=== PATIENT | male | born 1970 | race African-American/Black ===

== ENCOUNTER 2018-09-07 09:09 | Inpatient (IN) | payer OTHER ==
[2018-09-07 11:03] VITALS: BMI 29.9
--- NOTE | 2018-09-07 12:06 | HP ---
COWS - Scale Resting Pulse: 0= [place] 80 or Below Sweatin= Chills/Flushing Restless Observation: 1= Difficult to Sit Still Pupil Size: 1= Pupils >than Normal Bone or Joint Aches: 2= Severe Diffuse Aches Runny Nose/ Eye Tearin= Runny Nose/Eyes GI Upset > 30mins: 2= Nausea/Diarrhea Tremor Observation: 2= Slight Tremor Visible Yawning Observation: 2= >3x During Session Anxiety or Irritability: 2=Irritable/Anxious Goose Flesh Skin: 0=Smooth Skin COWS Score: 15 CIWA Score Nausea/Vomitin Muscle Tremors: 2 Anxiety: 3 Agitation: 3 Paroxysmal Sweats: 1-Minimal Palms Moist Orientation: 0-Oriented Tacttile Disturbances: 1-Very Mild Itch/Numbness Auditory Disturbances: 1-Very Mild Visual Disturbances: 0-None Headache: 2-Mild CIWA-Ar Total Score: 15 - Admission Criteria [facility] Guidelines: Admission for Medically Managed Detox: Requires at least one of the followin. CIWA greater than 12 2. Seizures within the past 24 hours 3. Delirium tremens within the past 24 hours 4. Hallucinations within the past 24 hours 5. Acute intervention needed for co occurring medical disorder 6. Acute intervention needed for co occurring psychiatric disorder 7. Severe withdrawal that cannot be handled at a lower level of care (continued vomiting, continued diarrhea, abnormal vital signs) requiring intravenous medication and/or fluids 8. Admission ROS S - [facility] Chief Complaint: i need help to stop using heroin and alcohol and xanax Allergies/Adverse Reactions: Allergies Allergy/AdvReac Type Severity Reaction Status Date / Time No Known Allergies Allergy Verified 09/07/18 10:50 History of Present Illness: this 48 years old male with withdrawal symptom,heroin and alcohol dependence, seeking detox, last detox in [facility] in 06/07 nicotine dependence 1/2 pack/day,would like nicotine gum longest period of sobriety 7 years schizophrenia on meds plan for rehab after detox history of asthma also using xanax Exam Limitations: No Limitations - Ebola screening Have you traveled outside of the country in the last 21 days: No Have you had contact with anyone from an Ebola affected area: No Do you have a fever: No - Review of Systems Constitutional: Chills, Loss of Appetite, Malaise, Night Sweats, Changes in sleep, Weakness EENT: reports: Tearing, Nose Congestion Respiratory: reports: No Symptoms reported Cardiac: reports: No Symptoms Reported GI: reports: Diarrhea, Nausea, Poor Appetite, Abdominal cramping : reports: No Symptoms Reported Musculoskeletal: reports: Back Pain, Joint Pain, Muscle Pain, Joint Stiffness Integumentary: reports: Dryness Neuro: reports: Headache, Tremors Endocrine: reports: No Symptoms Reported Hematology: reports: No Symptoms Reported Psychiatric: reports: No Sypmtoms Reported, Judgement Intact, Mood/Affect Appropiate, Orientated x3, Depressed (schizophrenia), other Patient History - Patient Medical History Hx Anemia: No Hx Asthma: Yes (on albuterol inhllaer) Hx Chronic Obstructive Pulmonary Disease (COPD): No Hx Cancer: No Hx Cardiac Disorders: No Hx Congestive Heart Failure: No Hx Hypertension: No Hx Hypercholesterolemia: No Hx Pacemaker: No HX Cerebrovascular Accident: No Hx Seizures: No Hx Dementia: No Hx Diabetes: No Hx Gastrointestinal Disorders: No Hx Liver Disease: No Hx Genitourinary Disorders: No Hx Sexually Transmitted Disorders: No Hx Renal Disease (ESRD): No Hx Thyroid Disease: No Hx Human Immunodeficiency Virus (HIV): No (last 07/08 negative) Hx Hepatitis C: No Hx Depression: Yes Hx Suicide Attempt: No Hx Bipolar Disorder: No Hx Schizophrenia: Yes (on med) Other Medical History: no suicidal,no homicidal - Patient Surgical History Past Surgical History: No - PPD History Previous Implant?: Yes Documented Results: Negative w/o proof Implanted On Prior [facility] Admission?: No PPD to be Administered?: Yes - Smoking Cessation Smoking history: Current every day smoker Have you smoked in the past 12 months: Yes Aproximately how many cigarettes per day: 10 Cigars Per Day: 0 Hx Chewing Tobacco Use: No Initiated information on smoking cessation: Yes 'Breaking Loose' booklet given: 09/07/18 - Substance & Tx. History Hx Alcohol Use: Yes Hx Substance Use Treatment: Yes ([facility] 06/07 completed) - Substances abused Heroin Substance route: Inhalation Frequency: Daily Amount used: a bundle a day Age of first use: 28 Date of last use: 09/06/18 Alcohol Substance route: Oral Frequency: Daily Amount used: 1 pint of brenda/2 of 24 ozs of beer Age of first use: 28 Date of last use: 09/07/18 Alprazolam (Xanax) Substance route: Oral Frequency: Daily Amount used: 4 mgs Age of first use: 46 Date of last use: 09/05/18 Family Disease History - Family Disease History Family Disease History: Other: Mother (alcohol, cirrhosis) Admission Physical Exam [facility] - Vital Signs Vital Signs: Vital Signs - 24 hr 09/07/18 10:56 Temperature 97 F L Pulse Rate 56 L Respiratory 18 Rate Blood Pressure 150/99 - Physical General Appearance: Yes: Moderate Distress, Tremorous, Irritable, Sweating, Anxious HEENTM: Yes: Normal ENT Inspection, BOBY, Pharynx Normal Respiratory: Yes: Within Normal Limits, Lungs Clear, Normal Breath Sounds, No Respiratory Distress, Other (history of asthma) Neck: Yes: Within Normal Limits, Supple, Trachea in good position Breast: Yes: Within Normal Limits Cardiology: Yes: Bradycardia Abdominal: Yes: Within Normal Limits, Normal Bowel Sounds, Soft Genitourinary: Yes: Within Normal Limits Back: Yes: Muscle Spasm Musculoskeletal: Yes: Back pain, Muscle Pain Neurological: Yes: Within Normal Limits, groover runner II-XII NML intact, Alert, Motor Strength 5/5, Normal Mood/Affect Integumentary: Yes: Dry Lymphatic: Yes: Within Normal Limits - Diagnostic (1) Opioid dependence with withdrawal Current Visit: Yes Status: Acute (2) Alcohol dependence with uncomplicated withdrawal Current Visit: Yes Status: Acute (3) Uncomplicated sedative, hypnotic or anxiolytic withdrawal Current Visit: Yes Status: Acute (4) Weight loss Current Visit: Yes Status: Acute (5) Nicotine dependence Current Visit: Yes Status: Acute (6) Depression Current Visit: Yes Status: Acute (7) Bipolar disorder Current Visit: Yes Status: Acute (8) Schizophrenia Current Visit: Yes Status: Acute (9) Asthma Current Visit: Yes Status: Acute Cleared for Admission [facility] - Detox or Rehab [facility] Level of Care: Medically Managed Detox Regimen/Protocol: Methadone/Valium Breathalyzer - Breathalyzer Breathalyzer: 0 Urine Drug Screen - Test Device Lot number: [id number] Expiration date: 05/19/20 - Control Is test valid?: Yes - Results Drug screen NEGATIVE: No Urine drug screen results: FEN-Fentanyl, MOP-Opiates, BAR-Barbiturates, BZO- Benzodiazepines Inpatient Rehab Admission - Rehab Decision to Admit Inpatient rehab admission?: No
[2018-09-07] MEDS ORDERED: cloNIDine HCL 0.1 MG TABLET PO PRN (12:26)
[2018-09-07] MEDS ORDERED: METHADONE HCL 10 MG TABLET (FOR DETOX USE ONLY) PO ONE ×2 (12:28→23:00)
[2018-09-07] MEDS ORDERED: diazePAM 5 MG TABLET PO PRN (12:32)
[2018-09-07] MEDS ORDERED: MELATONIN 5 MG TABLETS PO PRN (12:33)
[2018-09-07] MEDS ORDERED: BISMUTH SUBSALICYLATE 524 MG/30 ML UD PO PRN (12:33)
[2018-09-07] MEDS ORDERED: MAG HYDROX/AL HYDROX/SIMETH 30 ML UNIT-DOSE CUP PO PRN (12:33)
[2018-09-07] MEDS ORDERED: MENTHOL/PHENOL 1 EACH UD MM PRN (12:33)
[2018-09-07] MEDS ORDERED: IBUPROFEN 400 MG TABLET (FP) PO PRN (12:33)
[2018-09-07] MEDS ORDERED: ACETAMINOPHEN 325 MG TABLET (FP) PO PRN ×2 (12:33)
[2018-09-07] MEDS ORDERED: hydrOXYzine PAMOATE 25 MG CAPSULE (FP) PO PRN (12:33)
[2018-09-07] MEDS ORDERED: MAGNESIUM HYDROX 2400MG/30ML ORAL SUSPENSION 30 ML CUP PO PRN (12:33)
[2018-09-07] MEDS ORDERED: METHOCARBAMOL 500 MG TABLET PO PRN (12:33)
[2018-09-07] MEDS ORDERED: MAGNESIUM CITRATE 300 ML BOTTLE PO PRN (12:33)
[2018-09-07] MEDS ORDERED: ALBUTEROL SO4 8 GM HFA INHALER IH PRN (12:37)
[2018-09-07] MEDS: diazePAM 5 MG TABLET PO SCH ×2 (13:33→22:18)
--- NOTE | 2018-09-07 15:42 | EKG ---
Test Reason : Blood Pressure : / mmHG Vent. Rate : 050 BPM Atrial Rate : 050 BPM P-R Int : 178 ms QRS Dur : 092 ms QT Int : 468 ms P-R-T Axes : 062 008 011 degrees QTc Int : 426 ms SINUS BRADYCARDIA OTHERWISE NORMAL ECG NO PREVIOUS ECGS AVAILABLE Confirmed by REESE RAMIREZ, SABIHA ([id number]) on 09/07/2018 3:42:27 PM Referred By: Confirmed By:SABIHA LEIGH MD
[2018-09-07 18:39] LABS: ALBUMIN 4.4 g/dl (3.4-5.0); BILIRUBIN,TOTAL 0.5 mg/dL (0.2-1); BLOOD UREA NITROGEN 9.8 mg/dL (7-18); CALCIUM 9.1 mg/dL (8.5-10.1); POTASSIUM 4.8 mmol/L (3.5-5.1); TOT PROT 8.3 g/dl (6.4-8.2)
[2018-09-07 18:41] LABS: URINE APPEARANCE CLEAR; URINE BILIRUBIN NEGATIVE (NEGATIVE); URINE COLOR YELLOW; URINE GLUCOSE (UA) NEGATIVE (NEGATIVE); URINE KETONE NEGATIVE (NEGATIVE); URINE LEUK ESTERASE NEGATIVE (NEGATIVE); URINE NITRITE NEGATIVE (NEGATIVE); URINE PROTEIN NEGATIVE (NEGATIVE)
[2018-09-07 19:26] LABS: HEMATOCRIT 43.6 % (35.4-49); HEMOGLOBIN 14.5 GM/dL (11.7-16.9); MCH 31.8 pg (25.7-33.7); MCHC 33.2 g/dl (32.0-35.9); MEAN CELL VOLUME 95.8 fl (80-96); MEAN PLT VOLUME 8.6 fl (7.5-11.1); PLATELET COUNT 234 K/MM3 (134-434); RBC 4.55 M/mm3 (4.00-5.60); RDW 13.9 % (11.9-15.9); WHITE BLOOD COUNT 8.7 K/mm3 (4.0-10.0)
[2018-09-07] MEDS: THIAMINE HCL 100 MG TABLET (FP) PO SCH (22:18)
[2018-09-07] MEDS: NICOTINE POLACRILEX 2 MG GUM BUC PRN (22:19)
[2018-09-08] MEDS: diazePAM 5 MG TABLET PO SCH (07:28)
--- NOTE | 2018-09-08 09:35 | PN ---
S CIWA - CIWA Score Nausea/Vomitin Muscle Tremors: 2 Anxiety: 2 Agitation: 2 Paroxysmal Sweats: 1-Minimal Palms Moist Orientation: 0-Oriented Tacttile Disturbances: 1-Very Mild Itch/Numbness Auditory Disturbances: 1-Very Mild Visual Disturbances: 0-None Headache: 2-Mild CIWA-Ar Total Score: 13 [facility] COWS - Scale Resting Pulse: 0= [place] 80 or Below Sweatin= Chills/Flushing Restless Observation: 1= Difficult to Sit Still Pupil Size: 1= Pupils >than Normal Bone or Joint Aches: 2= Severe Diffuse Aches Runny Nose/ Eye Tearin= Runny Nose/Eyes GI Upset > 30mins: 2= Nausea/Diarrhea Tremor Observation of Outstretched Hands: 1= Tremor [place], Not Seen Yawning Observation: 1= 1-2x During Session Anxiety or Irritability: 2=Irritable/Anxious Goose Flesh Skin: 0=Smooth Skin COWS Score: 13 S Progress Note (SOAP) Subjective: alert,irritable,anxious,interrupted sleep,tremor,pain in the body and back Objective: 09/08/18 09:33 Vital Signs Temperature 98.1 F 09/08/18 09:08 Pulse Rate 58 L 09/08/18 09:08 Respiratory Rate 18 09/08/18 09:08 Blood Pressure 113/69 09/08/18 09:08 O2 Sat by Pulse Oximetry (%) 09/08/18 09:33 Laboratory Last Values WBC 8.7 K/mm3 (4.0-10.0) 09/07/18 13:00 RBC 4.55 M/mm3 (4.00-5.60) 09/07/18 13:00 Hgb 14.5 GM/dL (11.7-16.9) 09/07/18 13:00 Hct 43.6 % (35.4-49) 09/07/18 13:00 MCV 95.8 fl (80-96) 09/07/18 13:00 MCH 31.8 pg (25.7-33.7) 09/07/18 13:00 MCHC 33.2 g/dl (32.0-35.9) 09/07/18 13:00 RDW 13.9 % (11.9-15.9) 09/07/18 13:00 Plt Count 234 K/MM3 (134-434) 09/07/18 13:00 MPV 8.6 fl (7.5-11.1) 09/07/18 13:00 Sodium 136 mmol/L (136-145) 09/07/18 13:00 Potassium 4.8 mmol/L (3.5-5.1) 09/07/18 13:00 Chloride 100 mmol/L (98-107) 09/07/18 13:00 Carbon Dioxide 29 mmol/L (21-32) 09/07/18 13:00 Anion Gap 7 MMOL/L (8-16) L 09/07/18 13:00 BUN 9.8 mg/dL (7-18) 09/07/18 13:00 Creatinine 1.0 mg/dL (0.55-1.3) 09/07/18 13:00 Est GFR (CKD-EPI)AfAm 101.26 09/07/18 13:00 Est GFR (CKD-EPI)NonAf 87.37 09/07/18 13:00 Random Glucose 89 mg/dL (74-106) 09/07/18 13:00 Calcium 9.1 mg/dL (8.5-10.1) 09/07/18 13:00 Total Bilirubin 0.5 mg/dL (0.2-1) 09/07/18 13:00 AST 36 U/L (15-37) 09/07/18 13:00 ALT 31 U/L (13-61) 09/07/18 13:00 Alkaline Phosphatase 89 U/L (45-117) 09/07/18 13:00 Total Protein 8.3 g/dl (6.4-8.2) H 09/07/18 13:00 Albumin 4.4 g/dl (3.4-5.0) 09/07/18 13:00 Urine Color Yellow 09/07/18 15:45 Urine Appearance Clear 09/07/18 15:45 Urine pH 7.0 (5.0-8.0) 09/07/18 15:45 Ur Specific [place] 1.030 (1.010-1.035) 09/07/18 15:45 Urine Protein Negative (NEGATIVE) 09/07/18 15:45 Urine Glucose (UA) Negative (NEGATIVE) 09/07/18 15:45 Urine Ketones Negative (NEGATIVE) 09/07/18 15:45 Urine Blood Negative (NEGATIVE) 09/07/18 15:45 Urine Nitrite Negative (NEGATIVE) 09/07/18 15:45 Urine Bilirubin Negative (NEGATIVE) 09/07/18 15:45 Urine Urobilinogen 1.0 mg/dL (0.2-1.0) 09/07/18 15:45 Ur Leukocyte Esterase Negative (NEGATIVE) 09/07/18 15:45 RPR Titer Nonreactive (NONREACTIVE) 09/07/18 13:00 Assessment: 09/08/18 09:34 withdrawal symptom Plan: continue detox
[2018-09-08] MEDS ORDERED: METHADONE HCL 10 MG TABLET (FOR DETOX USE ONLY) PO ONE (10:00)
[2018-09-08] MEDS: PRENATAL VITAMINS W/ FOLIC ACID TABLET (FP) PO SCH (10:28)
[2018-09-08] MEDS: NICOTINE POLACRILEX 2 MG GUM BUC PRN (10:32)
--- NOTE | 2018-09-08 11:45 | PN ---
[facility] Progress Note Note: Patient does not want to be sees saying:"I'm allright"
[2018-09-08] MEDS ORDERED: diazePAM 5 MG TABLET PO SCH (14:00)
[2018-09-08 17:14] VITALS: TEMP 98.1
[2018-09-08] MEDS: THIAMINE HCL 100 MG TABLET (FP) PO SCH (22:55)
[2018-09-09] MEDS ORDERED: diazePAM 5 MG TABLET PO ONE (06:00)
--- NOTE | 2018-09-09 09:40 | PN ---
S CIWA - CIWA Score Nausea/Vomitin Muscle Tremors: 2 Anxiety: 2 Agitation: 2 Paroxysmal Sweats: No Perspiration Orientation: 0-Oriented Tacttile Disturbances: 1-Very Mild Itch/Numbness Auditory Disturbances: 0-None Visual Disturbances: 0-None Headache: 2-Mild CIWA-Ar Total Score: 11 [facility] COWS - Scale Resting Pulse: 0= [place] 80 or Below Sweatin= Chills/Flushing Restless Observation: 1= Difficult to Sit Still Pupil Size: 1= Pupils >than Normal Bone or Joint Aches: 1= Mild Discomfort Runny Nose/ Eye Tearin= Nasal Congestion GI Upset > 30mins: 1= Stomach Cramp Tremor Observation of Outstretched Hands: 2= Slight Tremor Visible Yawning Observation: 1= 1-2x During Session Anxiety or Irritability: 2=Irritable/Anxious Goose Flesh Skin: 0=Smooth Skin COWS Score: 11 S Progress Note (SOAP) Subjective: alert,irritable,anxious,interrupted sleep,tremor,pain in the body and back Objective: 09/09/18 09:39 Vital Signs Temperature 98.1 F 09/09/18 06:00 Pulse Rate 61 09/09/18 06:00 Respiratory Rate 20 09/09/18 06:00 Blood Pressure 92/58 L 09/09/18 06:00 O2 Sat by Pulse Oximetry (%) 09/09/18 09:39 Laboratory Last Values WBC 8.7 K/mm3 (4.0-10.0) 09/07/18 13:00 RBC 4.55 M/mm3 (4.00-5.60) 09/07/18 13:00 Hgb 14.5 GM/dL (11.7-16.9) 09/07/18 13:00 Hct 43.6 % (35.4-49) 09/07/18 13:00 MCV 95.8 fl (80-96) 09/07/18 13:00 MCH 31.8 pg (25.7-33.7) 09/07/18 13:00 MCHC 33.2 g/dl (32.0-35.9) 09/07/18 13:00 RDW 13.9 % (11.9-15.9) 09/07/18 13:00 Plt Count 234 K/MM3 (134-434) 09/07/18 13:00 MPV 8.6 fl (7.5-11.1) 09/07/18 13:00 Sodium 136 mmol/L (136-145) 09/07/18 13:00 Potassium 4.8 mmol/L (3.5-5.1) 09/07/18 13:00 Chloride 100 mmol/L (98-107) 09/07/18 13:00 Carbon Dioxide 29 mmol/L (21-32) 09/07/18 13:00 Anion Gap 7 MMOL/L (8-16) L 09/07/18 13:00 BUN 9.8 mg/dL (7-18) 09/07/18 13:00 Creatinine 1.0 mg/dL (0.55-1.3) 09/07/18 13:00 Est GFR (CKD-EPI)AfAm 101.26 09/07/18 13:00 Est GFR (CKD-EPI)NonAf 87.37 09/07/18 13:00 Random Glucose 89 mg/dL (74-106) 09/07/18 13:00 Calcium 9.1 mg/dL (8.5-10.1) 09/07/18 13:00 Total Bilirubin 0.5 mg/dL (0.2-1) 09/07/18 13:00 AST 36 U/L (15-37) 09/07/18 13:00 ALT 31 U/L (13-61) 09/07/18 13:00 Alkaline Phosphatase 89 U/L (45-117) 09/07/18 13:00 Total Protein 8.3 g/dl (6.4-8.2) H 09/07/18 13:00 Albumin 4.4 g/dl (3.4-5.0) 09/07/18 13:00 Urine Color Yellow 09/07/18 15:45 Urine Appearance Clear 09/07/18 15:45 Urine pH 7.0 (5.0-8.0) 09/07/18 15:45 Ur Specific [place] 1.030 (1.010-1.035) 09/07/18 15:45 Urine Protein Negative (NEGATIVE) 09/07/18 15:45 Urine Glucose (UA) Negative (NEGATIVE) 09/07/18 15:45 Urine Ketones Negative (NEGATIVE) 09/07/18 15:45 Urine Blood Negative (NEGATIVE) 09/07/18 15:45 Urine Nitrite Negative (NEGATIVE) 09/07/18 15:45 Urine Bilirubin Negative (NEGATIVE) 09/07/18 15:45 Urine Urobilinogen 1.0 mg/dL (0.2-1.0) 09/07/18 15:45 Ur Leukocyte Esterase Negative (NEGATIVE) 09/07/18 15:45 RPR Titer Nonreactive (NONREACTIVE) 09/07/18 13:00 Assessment: 09/09/18 09:40 withdrawal symptom Plan: continue detox
[2018-09-09] MEDS ORDERED: METHADONE HCL 10 MG TABLET (FOR DETOX USE ONLY) PO ONE (10:00)
[2018-09-09] MEDS: PRENATAL VITAMINS W/ FOLIC ACID TABLET (FP) PO SCH (10:13)
[2018-09-09] MEDS: NICOTINE POLACRILEX 2 MG GUM BUC PRN (10:16)
[2018-09-09 13:49] VITALS: BP 106/68; PULSE 56
--- NOTE | 2018-09-09 14:03 | PN ---
[facility] Progress Note Note: patient did not want to continue treatment,due to personal reasons,all attempts to convince patient to stay with no avail, seen by counselor,high risks of relapsing explained,patient understood,signed release ama, advice to call 9any [email or web address] or go to nearest er if any problem or not feeling well
--- NOTE | 2018-09-09 14:06 | DS ---
[facility] Detox Discharge Summary Admission Date: 09/07/18 Discharge Date: 09/09/18 - History Present History: Alcohol Dependence, Opioid Dependence, Sedative Dependence Additional Comments: patient signed AMA Pertinent Past History: asthma weight loss nicotine dependence - Physical Exam Results Vital Signs: Vital Signs Temperature 98.1 F 09/09/18 13:49 Pulse Rate 56 L 09/09/18 13:49 Respiratory Rate 16 09/09/18 13:49 Blood Pressure 106/68 09/09/18 13:49 O2 Sat by Pulse Oximetry (%) Pertinent Admission Physical Exam Findings: withdrawal signs and symptom Vital Signs Temperature 98.1 F 09/09/18 13:49 Pulse Rate 56 L 09/09/18 13:49 Respiratory Rate 16 09/09/18 13:49 Blood Pressure 106/68 09/09/18 13:49 O2 Sat by Pulse Oximetry (%) Laboratory Last Values WBC 8.7 K/mm3 (4.0-10.0) 09/07/18 13:00 RBC 4.55 M/mm3 (4.00-5.60) 09/07/18 13:00 Hgb 14.5 GM/dL (11.7-16.9) 09/07/18 13:00 Hct 43.6 % (35.4-49) 09/07/18 13:00 MCV 95.8 fl (80-96) 09/07/18 13:00 MCH 31.8 pg (25.7-33.7) 09/07/18 13:00 MCHC 33.2 g/dl (32.0-35.9) 09/07/18 13:00 RDW 13.9 % (11.9-15.9) 09/07/18 13:00 Plt Count 234 K/MM3 (134-434) 09/07/18 13:00 MPV 8.6 fl (7.5-11.1) 09/07/18 13:00 Sodium 136 mmol/L (136-145) 09/07/18 13:00 Potassium 4.8 mmol/L (3.5-5.1) 09/07/18 13:00 Chloride 100 mmol/L (98-107) 09/07/18 13:00 Carbon Dioxide 29 mmol/L (21-32) 09/07/18 13:00 Anion Gap 7 MMOL/L (8-16) L 09/07/18 13:00 BUN 9.8 mg/dL (7-18) 09/07/18 13:00 Creatinine 1.0 mg/dL (0.55-1.3) 09/07/18 13:00 Est GFR (CKD-EPI)AfAm 101.26 09/07/18 13:00 Est GFR (CKD-EPI)NonAf 87.37 09/07/18 13:00 Random Glucose 89 mg/dL (74-106) 09/07/18 13:00 Calcium 9.1 mg/dL (8.5-10.1) 09/07/18 13:00 Total Bilirubin 0.5 mg/dL (0.2-1) 09/07/18 13:00 AST 36 U/L (15-37) 09/07/18 13:00 ALT 31 U/L (13-61) 09/07/18 13:00 Alkaline Phosphatase 89 U/L (45-117) 09/07/18 13:00 Total Protein 8.3 g/dl (6.4-8.2) H 09/07/18 13:00 Albumin 4.4 g/dl (3.4-5.0) 09/07/18 13:00 Urine Color Yellow 09/07/18 15:45 Urine Appearance Clear 09/07/18 15:45 Urine pH 7.0 (5.0-8.0) 09/07/18 15:45 Ur Specific [place] 1.030 (1.010-1.035) 09/07/18 15:45 Urine Protein Negative (NEGATIVE) 09/07/18 15:45 Urine Glucose (UA) Negative (NEGATIVE) 09/07/18 15:45 Urine Ketones Negative (NEGATIVE) 09/07/18 15:45 Urine Blood Negative (NEGATIVE) 09/07/18 15:45 Urine Nitrite Negative (NEGATIVE) 09/07/18 15:45 Urine Bilirubin Negative (NEGATIVE) 09/07/18 15:45 Urine Urobilinogen 1.0 mg/dL (0.2-1.0) 09/07/18 15:45 Ur Leukocyte Esterase Negative (NEGATIVE) 09/07/18 15:45 RPR Titer Nonreactive (NONREACTIVE) 09/07/18 13:00 - Medication Discharge Medications: Ambulatory Orders Albuterol Sulfate Inhaler - [Ventolin Hfa Inhaler -] 2 inh PO Q4H PRN 09/07/18 - Diagnosis (1) Opioid dependence with withdrawal Current Visit: Yes Status: Acute (2) Alcohol dependence with uncomplicated withdrawal Current Visit: Yes Status: Acute (3) Uncomplicated sedative, hypnotic or anxiolytic withdrawal Current Visit: Yes Status: Acute (4) Weight loss Current Visit: Yes Status: Acute (5) Nicotine dependence Current Visit: Yes Status: Acute (6) Depression Current Visit: Yes Status: Acute (7) Bipolar disorder Current Visit: Yes Status: Acute (8) Schizophrenia Current Visit: Yes Status: Acute (9) Asthma Current Visit: Yes Status: Acute - AMA Did Patient Leave Against Medical Advice: Yes
[2018-09-10] MEDS ORDERED: METHADONE (DETOX) 10 MG, METHADONE (DETOX) 5 MG PO ONE (10:00)
[2018-09-10] MEDS ORDERED: METHADONE HCL 10 MG TABLET (FOR DETOX USE ONLY) PO ONE (10:00)
[2018-09-11] MEDS ORDERED: METHADONE HCL 5 MG TABLET (FOR DETOX USE ONLY) PO ONE (06:00)
[2018-09-11] MEDS ORDERED: METHADONE HCL 10 MG TABLET (FOR DETOX USE ONLY) PO ONE (10:00)
[2018-09-12] MEDS ORDERED: METHADONE HCL 5 MG TABLET (FOR DETOX USE ONLY) PO ONE (06:00)
== END 2018-09-09 14:20 | disposition left against medical advice (07) | DRG 770 ==
LOC: YASAS 09:09 → Y6N 12:31
PROVIDERS: ADMIT Surgery; ATTEND Surgery
PROC: HZ2ZZZZ Detoxification Services for Substance Abuse Treatment (ICD-10-PCS; principal; 2018-09-07)
DX: F10.230 Alcohol dependence with withdrawal, uncomplicated (principal); F11.23 Opioid dependence with withdrawal; F13.230 Sedative, hypnotic or anxiolytic dependence with withdrawal, uncomplicated; F17.210 Nicotine dependence, cigarettes, uncomplicated; F20.9 Schizophrenia, unspecified; F31.9 Bipolar disorder, unspecified; J45.909 Unspecified asthma, uncomplicated; R63.4 Abnormal weight loss; Z68.30 Body mass index [BMI] 30.0-30.9, adult; Z59.0 Homelessness
CPT/HCPCS: 36415; 80053; 81003; 85027; 86593; 93005; 93010